=== PATIENT | female | born 1995 | race Caucasian/White ===

== ENCOUNTER 2018-03-26 02:59 | Inpatient (IN) ==
[2018-03-26] MEDS ORDERED: LACTATED RINGERS 500 ML IV PRN (03:18)
[2018-03-26] MEDS ORDERED: FAMOTIDINE 20 MG/2 ML VIAL IV PRN (03:18)
[2018-03-26] MEDS ORDERED: BUTORPHANOL 2 MG/ML VIAL IV PRN (03:18)
[2018-03-26] MEDS ORDERED: MEPERIDINE 50 MG/1 ML VIAL IV PRN (03:18)
[2018-03-26] MEDS ORDERED: ONDANSETRON 4 MG/2 ML VIAL IV PRN (03:18)
[2018-03-26] MEDS ORDERED: SODIUM CHLORIDE 0.9% 100 ML IV ONE (03:19)
[2018-03-26] MEDS ORDERED: AMPICILLIN 2,000 MG VIAL ONE (03:19)
[2018-03-26] MEDS ORDERED: CITRIC ACID/SODIUM CITRATE 30 ML UDCUP PO ONE (03:20)
[2018-03-26] MEDS ORDERED: AMPICILLIN INJ 2,000 MG in SODIUM CHLORIDE 0.9% 100 ML IV ONE (03:21)
[2018-03-26] MEDS ORDERED: OXYTOCIN/LR 20 UNIT/1,000 ML BAG IV ONE (03:21)
[2018-03-26] MEDS ORDERED: ePHEDrine 50 MG/ML AMP IV PRN (03:22)
[2018-03-26] MEDS: LACTATED RINGERS 1,000 ML IV SCH ×2 (03:30→04:02)
[2018-03-26 03:32] LABS: Basophils % 0.3 % (0.0-0.8); Eosinophils # 0.1 10*3/uL (0.0-0.87); Eosinophils % 0.6 % (0.00-10.9); Hematocrit 34.7 VOL% (35.7-47.0); Hemoglobin 11.7 GM/DL (12.0-16.0); Immature Granulocytes Absolute 0.11 #; Lymphocytes # 3.8 10*3/uL (1.4-4.0); Lymphocytes % 33.7 % (21.3-54.2); Mean Corpuscular HGB Conc 33.7 GM/DL (32-36); Mean Corpuscular Hemoglobin 30 PG (27-34); Mean Platelet Volume 11.6 FL (9.6-12.0); Monocytes # 0.8 10*3/uL (0.11-0.8); Monocytes % 7.5 % (1.7-12.7); Neutrophils # 6.4 10*3/uL (1.4-7.4); Neutrophils % 56.9 % (38.7-73.9); Platelet Count 208 T/CUMM (130-400); Red Cell Distribution Width 12.3 % (9.3-17.3); White Blood Count 11.2 T/CUMM (4-12)
[2018-03-26] MEDS ORDERED: LIDOCAINE 1% 50 ML VIAL ONE (03:41)
[2018-03-26] MEDS ORDERED: miSOPROStol 200 MCG TABLET ONE (03:41)
[2018-03-26] MEDS ORDERED: fentaNYL 2 MCG/ROPIV 0.2% EPID 100 ML EPIDURAL ONE (03:43)
[2018-03-26] MEDS ORDERED: METHYLERGONOVINE 0.2 MG/1 ML AMP ONE (03:43)
[2018-03-26] MEDS ORDERED: CARBOPROST TROMETHAMINE 250 MCG/ML AMP IM ONE (03:43)
[2018-03-26 03:49] LABS: Alanine Aminotransferase 14 U/L (13-56); Albumin 2.8 G/DL (3.4-5.0); Alkaline Phosphatase 145 U/L (45-117); Aspartate Amino Transferase 12 U/L (0-37); Bilirubin,Total < 0.39 MG/DL (0.2-1.0); Blood Urea Nitrogen 9 MG/DL (7-18); Calcium 10.4 MG/DL (8.5-10.1); Glucose 88 MG/DL (74-106); Osmolality,Calculated 267.1 MOS/KG (273-304); Potassium 4.2 MMOL/L (3.5-5.1); Sodium 135 MMOL/L (136-145)
[2018-03-26] MEDS ORDERED: fentaNYL 2 MCG/ROPIV 0.2% EPID 100 ML EPIDURAL SCH (04:00)
[2018-03-26] MEDS ORDERED: WITCH HAZEL PADS 100/JAR TOP PRN (11:36)
[2018-03-26] MEDS ORDERED: HYDROCORTISONE 2.5% RECTAL CREAM 30 GM TUBE TOP PRN (11:36)
[2018-03-26] MEDS ORDERED: BENZOCAINE 20%/MENTHOL 0.5% SPRAY 56 GM CAN TOP PRN (11:36)
[2018-03-26] MEDS ORDERED: DIPH/TET/ACEL PERT BOOSTER VACCINE 0.5 ML VIAL IM ONE (11:36)
[2018-03-26] MEDS ORDERED: ACETAMINOPHEN 325 MG TABLET PO PRN (11:36)
[2018-03-26] MEDS ORDERED: RHO(D) IMMUNE GLOBULIN 300 MCG SYRINGE IM ONE (11:36)
[2018-03-26] MEDS ORDERED: MEASLES/MUMPS/RUBELLA VACCINE 0.5 ML VIAL SUBCUT ONE (11:36)
[2018-03-26] MEDS ORDERED: BISACODYL 10 MG SUPP RECTAL PRN (11:36)
[2018-03-26] MEDS ORDERED: LANOLIN 50% CREAM 0.3 OZ TUBE TOP PRN (11:36)
[2018-03-26] MEDS: oxyCODONE/ACETAMINOPHEN 5-325 MG TABLET PO PRN (21:35)
[2018-03-26] MEDS: DOCUSATE SODIUM 100 MG CAPSULE PO SCH (21:35)
[2018-03-27 06:35] LABS: Basophils % 0.3 % (0.0-0.8); Eosinophils # 0.1 10*3/uL (0.0-0.87); Eosinophils % 0.9 % (0.00-10.9); Hematocrit 33.5 VOL% (35.7-47.0); Hemoglobin 11.4 GM/DL (12.0-16.0); Immature Granulocytes % 0.9 %; Immature Granulocytes Absolute 0.11 #; Lymphocytes # 4.8 10*3/uL (1.4-4.0); Lymphocytes % 39.2 % (21.3-54.2); Mean Corpuscular Hemoglobin 31 PG (27-34); Mean Corpuscular Volume 89.6 FL (87-102); Mean Platelet Volume 11.8 FL (9.6-12.0); Monocytes # 0.9 10*3/uL (0.11-0.8); Monocytes % 7.1 % (1.7-12.7); Neutrophils # 6.3 10*3/uL (1.4-7.4); Neutrophils % 51.6 % (38.7-73.9); Platelet Count 195 T/CUMM (130-400); Red Blood Count 3.74 MC/CUMM (3.8-5.5); Red Cell Distribution Width 12.6 % (9.3-17.3); White Blood Count 12.3 T/CUMM (4-12)
[2018-03-27] MEDS: oxyCODONE/ACETAMINOPHEN 5-325 MG TABLET PO PRN ×2 (06:52→18:06)
[2018-03-27] MEDS: IBUPROFEN 800 MG TABLET PO PRN ×2 (06:52→18:05)
[2018-03-27 07:55] LABS: HIV Antigen/Antibody Result Nonreactive (Nonreactive); Hepatitis B Surface Ag Quant 0.13 Index; Hepatitis B Surface Ag Result Negative (Negative)
[2018-03-27] MEDS: MULTIVITAMIN (PRENATAL) TABLET PO SCH (08:12)
[2018-03-27] MEDS: DOCUSATE SODIUM 100 MG CAPSULE PO SCH ×2 (08:12→21:25)
[2018-03-28] MEDS: oxyCODONE/ACETAMINOPHEN 5-325 MG TABLET PO PRN (04:39)
[2018-03-28] MEDS: IBUPROFEN 800 MG TABLET PO PRN (04:41)
[2018-03-28 07:17] VITALS: BP 120/80
[2018-03-28] MEDS: MULTIVITAMIN (PRENATAL) TABLET PO SCH (08:33)
[2018-03-28] MEDS: DOCUSATE SODIUM 100 MG CAPSULE PO SCH (08:33)
== END 2018-03-28 12:10 | disposition home or self-care (01) | DRG 560 ==
LOC: N.LDOUT 02:59 → N.LD 03:01 → N.OB 19:10
PROVIDERS: ADMIT Obstetrics & Gynecology; ATTEND Obstetrics & Gynecology